=== PATIENT | female | born 1990 | race Caucasian/White ===

== ENCOUNTER 2024-10-14 16:01 | Emergency (ER) | payer OTHER ==
[~2024-10-14] VITALS: Ht 167.6 cm; Wt 71.0 kg
[2024-10-14 16:03] VITALS: O2SAT 98
[2024-10-14] MEDS: ACETAMINOPHEN 325MG TABLET PO ONE (17:22)
[2024-10-14 18:12] LABS: BASOPHILS % 0.5 % (0.0-2.0); EOSINOPHILS % 0.8 % (0.0-5.0); HEMATOCRIT. 35.1 % (36.0-48.0); HEMOGLOBIN. 11.7 g/dL (12.0-16.0); LYMPHOCYTES % 22.8 % (20.0-50.0); MEAN CORPUSCULAR HEMOGLOBIN 31.2 pg (28.0-32.0); MEAN CORPUSCULAR HGB CONC 33.2 g/dL (31.0-37.0); MEAN CORPUSCULAR VOLUME 93.8 fL (81.0-99.0); MEAN PLATELET VOLUME 9.2 fl (7.4-10.4); MONOCYTES % 7.7 % (2.0-8.0); NEUTROPHILS % 68.2 % (40.0-76.0); PLATELET 250 x1000/uL (130-400); RED BLOOD CELL COUNT 3.75 mill/uL (4.2-5.4); RED CELL DISTRIBUTION WIDTH 13.1 % (11.6-14.6); WHITE BLOOD COUNT 6.6 x1000/uL (4.5-11.0)
[2024-10-14 18:27] LABS: CHLORIDE 109 mEq/L (98-107); POTASSIUM 3.8 mEq/L (3.5-5.1); SODIUM 143 mEq/L (136-145)
[2024-10-14 18:28] LABS: CARBON DIOXIDE 25 mEq/L (21-32)
[2024-10-14 18:33] LABS: CREATININE 0.9 mg/dL (0.6-1.0); GLUCOSE 91 mg/dL (70-105); UREA NITROGEN BLOOD 11 mg/dL (9-23)
[2024-10-14 18:34] LABS: ETHANOL BLOOD < 10 mg/dL (<10)
[2024-10-14] MEDS ORDERED: NAPR-681 MT (19:20)
[2024-10-14 19:31] VITALS: BP 120/78; PULSE 81; RESP 14; TEMP 37; O2SAT 98
== END 2024-10-14 19:42 | disposition home or self-care (01) ==
LOC: ER 16:01
DX: S09.90XA Unspecified injury of head, initial encounter (principal); M54.2 Cervicalgia; F19.11 Other psychoactive substance abuse, in remission; W19.XXXA Unspecified fall, initial encounter; Y93.89 Activity, other specified; Y92.89 Other specified places as the place of occurrence of the external cause; Y99.8 Other external cause status
CPT/HCPCS: 36415; 80048; 80320; 85025; 99284; G0480